=== PATIENT | male | born 1990 | race African-American/Black ===

== ENCOUNTER 2018-01-10 17:04 | Emergency (ER) | payer SELFPAY ==
[~2018-01-10] VITALS: Ht 172.7 cm; Wt 79.4 kg
[~2018-01-10 17:04] MED LIST: ACHD5005 PO
--- OUTSIDE RECORDS SUMMARY | 2018-01-10 17:10 | XMS REPORT ---
Author Author VENITA BEAN [facility] eClinicalWorks Address Unknown Phone Unavailable Care Team Providers Care Cafeteria Monitor Name Role Phone VENITA BEAN CP Unavailable Allergies, Adverse Reactions, Alerts Substance Reaction Event Type N.K.D.A. Info Not Available Non Drug Allergy Problems Problem Type Condition ICD-9 Code Onset Dates Condition Status Assessment Warts 078.10 Active Medications No Known Medications Procedures Procedure Coding System Code Date DESTRUCT LESION, 09-17 CPT-4 10930 May 04, 2015 Vital Signs Date/Time: May 04, 2015 Temperature 99.4 F Weight 167.3 lbs Height 72 in BMI 22.69 Index Blood Pressure Diastolic 90 mmHg Blood Pressure Systolic 122 mmHg Cardiac Monitoring Heart Rate 84 bpm Results No Known Results Summary Purpose eClinicalWorks Submission
--- NOTE | 2018-01-10 18:30 | ED General ---
General Chief Complaint: Dizziness/Syncope Stated Complaint: LIPS NUMB,LIGHT HEADED Nursing Triage Note: ARRIVED VIA AMB TO ROOM 10. STATES HE WOKE UP AT 6AM TODAY LIGHTHEADED AND HIS LIPS WERE NUMB. STATES IT HAS GOTTEN BETTER BUT IS NOT GONE. Nursing Sepsis Screen: No Definite Risk History of Present Illness Date Seen by Provider: January 10, 2018 Time Seen by Provider: 18:15 Initial Comments This 27-year-old man presents to the emergency room with complaints of feeling lightheaded and having numb lips since waking this morning. He denies any chest pain, palpitations, focal weakness, or shortness of breath. The perioral numbness has resolved but he still feels a little lightheaded. It may be worse when he stands up too fast. He denies any prior episodes. He smokes tobacco and marijuana. He occasionally drinks alcohol. He denies any marijuana or alcohol use within the past 2 days. Standing blood pressure on assessment was 128/99 with heart rate of 88. He denies any prior health history. He has no local physician. Allergies and Home Medications Allergies Coded Allergies: No Known Drug Allergies (Unverified , 05/26/12) Home Medications No Active Prescriptions or Reported Meds Patient Home Medication List Home Medication List Reviewed: Yes Review of Systems Constitutional: dizziness EENTM: no symptoms reported Respiratory: no symptoms reported Cardiovascular: see HPI Gastrointestinal: no symptoms reported Genitourinary: no symptoms reported Musculoskeletal: no symptoms reported Skin: see HPI Psychiatric/Neurological: See HPI Hematologic/Lymphatic: No Symptoms Reported Immunological/Allergic: no symptoms reported Past Caukthz-Ncskal-Nzfhpc Hx Past Med/Social Hx: Reviewed and Corrections made Patient Social History Alcohol Use: Occasionally Uses Recreational Drug Use: Yes Drug of Choice: Marijuana Smoking Status: Current Everyday Smoker Recent Foreign Travel: No Contact w/Someone Who Travel: No Recent Infectious Disease Expo: No Recent Hopitalizations: No Past Medical History Surgeries: No Respiratory: Yes (CHILDHOOD ASTHMA) Cardiac: No Neurological: No Genitourinary: No Gastrointestinal: No Musculoskeletal: No Endocrine: No HEENT: No Cancer: No Psychosocial: No Integumentary: No Physical Exam Vital Signs Vital Signs - First Documented 01/10/18 01/10/18 17:10 20:18 Temp 98.0 Pulse 81 Resp 18 B/P (MAP) 155/111 (126) Pulse Ox 98 O2 Delivery Room Air Capillary Refill : Less Than 3 Seconds General Appearance: No Apparent Distress, WD/WN HEENT: PERRL/EOMI, Normal ENT Inspection, Pharynx Normal Neck: Normal Inspection Respiratory: Lungs Clear, Normal Breath Sounds, No Accessory Muscle Use, No Respiratory Distress Cardiovascular: Regular Rate, Rhythm, No Edema, No Murmur Extremity: Normal Capillary Refill, Normal Inspection, No Pedal Edema Neurologic/Psychiatric: Alert, Oriented x3, No Motor/Sensory Deficits, Normal Mood/Affect, 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 Patient was found to have multiple hypertensive measurements while in the ER. He was advised to follow-up in the clinic setting to a blood pressure checked again. A liter of IV fluids was infused as patient seemed to be symptomatic upon standing. Departure Impression Primary Impression: Lightheadedness Additional Impressions: Perioral numbness Hypertension Qualified Codes: I10 - Essential (primary) hypertension Disposition: 01 HOME, SELF-CARE Condition: Improved Departure-Patient Inst. Referrals: [facility] (PCP/Family) Primary Care Physician Patient Instructions: High Blood Pressure (DC) Add. Discharge Instructions: [facility]. Have your blood pressure checked at your follow-up appointment. Return to emergency room if you 're having worsening symptoms. Avoid excessive salt or stimulants such as caffeine, decongestants medicines, energy drinks, etc. Avoid use of psychogenic substances such as marijuana. All discharge instructions reviewed with patient and/or family. Voiced understanding. Scripts No Active Prescriptions or Reported Meds SHEILA KENNEDY MD January 10, 2018 18:30
[2018-01-10] MEDS ORDERED: NS IV 1000 ML 1,000 ML IV ONE (18:31)
[2018-01-10 18:55] LABS: BASOPHILS # (AUTO) 0.1 10^3/uL (0.0-0.1); BASOPHILS % (AUTO) 1 % (0-10); EOSINOPHILS # (AUTO) 0.4 10^3/uL (0.0-0.3); EOSINOPHILS % (AUTO) 4 % (0-10); HEMATOCRIT 43 % (40-54); HEMOGLOBIN 15.6 G/DL (13.3-17.7); LYMPHOCYTES # (AUTO) 2.7 X 10^3 (1.0-4.0); LYMPHOCYTES % (AUTO) 30 % (12-44); MEAN CORPUSCULAR HEMOGLOBIN 30 PG (25-34); MEAN CORPUSCULAR HGB CONC 36 G/DL (32-36); MEAN CORPUSCULAR VOLUME 83 FL (80-99); MEAN PLATELET VOLUME 12.1 FL (7.4-10.4); MONOCYTES # (AUTO) 0.5 X 10^3 (0.0-1.0); MONOCYTES % (AUTO) 6 % (0-12); NEUTROPHILS # (AUTO) 5.3 X 10^3 (1.8-7.8); NEUTROPHILS % (AUTO) 59 % (42-75); PLATELET COUNT 213 10^3/uL (130-400); RED BLOOD COUNT 5.19 10^6/uL (4.35-5.85); RED CELL DISTRIBUTION WIDTH 12.5 % (10.0-14.5); WHITE BLOOD COUNT 8.9 10^3/uL (4.3-11.0)
[2018-01-10 19:13] LABS: ALANINE AMINOTRANSFERASE 11 U/L (0-55); ALBUMIN 4.7 GM/DL (3.2-4.5); ALKALINE PHOSPHATASE 70 U/L (40-136); BILIRUBIN,TOTAL 0.7 MG/DL (0.1-1.0); BUN/CREATININE RATIO 11; CALCIUM 10.1 MG/DL (8.5-10.1); CARBON DIOXIDE 26 MMOL/L (21-32); CHLORIDE 106 MMOL/L (98-107); CREATININE SERUM 0.98 MG/DL (0.60-1.30); GFR ESTIMATED > 60; GLUCOSE 83 MG/DL (70-105); MAGNESIUM 2.2 MG/DL (1.8-2.4); SODIUM 141 MMOL/L (135-145); TOTAL PROTEIN 6.8 GM/DL (6.4-8.2)
[2018-01-10 19:27] LABS: BILIRUBIN,URINE NEGATIVE (NEGATIVE); CLARITY,URINE CLEAR; COLOR,URINE YELLOW; GLUCOSE, URINE (UA) NEGATIVE (NEGATIVE); KETONES,URINE NEGATIVE (NEGATIVE); LEUKOCYTE ESTERASE ,URINE 1+ (NEGATIVE); NITRITE,URINE NEGATIVE (NEGATIVE); PH,URINE 6.5 (5-9); PROTEIN,URINE 1+ (NEGATIVE); UROBILINOGEN,URINE 1 MG/DL (NORMAL)
[2018-01-10 19:32] LABS: TSH (THYROID ANALYZER) 1.12 UIU/ML (0.35-4.94)
[2018-01-10 19:45] LABS: AMPHETAMINE SCREEN, URINE NEGATIVE (NEGATIVE); BARBITURATE SCREEN URINE NEGATIVE (NEGATIVE); BENZODIAZEPINES SCREEN URINE NEGATIVE (NEGATIVE); CANNABINOID SCREEN, URINE POSITIVE (NEGATIVE); COCAINE SCREEN URINE NEGATIVE (NEGATIVE); METHADONE STAT NEGATIVE (NEGATIVE); METHAMPHETAMINE SCREEN URINE S NEGATIVE (NEGATIVE); OPIATE SCREEN URINE NEGATIVE (NEGATIVE); OXYCODONE STAT NEGATIVE (NEGATIVE); PROPOXYPHENE STAT NEGATIVE (NEGATIVE); TRICYCLIC ANTIDEPRESSANTS SCRE NEGATIVE (NEGATIVE)
[2018-01-10 20:18] VITALS: BP 134/104
== END 2018-01-10 20:18 | disposition home or self-care (01) ==
LOC: EDUNIT# 17:04 → ER 17:06
DX: R42 Dizziness and giddiness (principal); R20.0 Anesthesia of skin; I10 Essential (primary) hypertension; J45.909 Unspecified asthma, uncomplicated; F17.200 Nicotine dependence, unspecified, uncomplicated
CPT/HCPCS: 36415; 80053; 80306; 81000; 83735; 84443; 85025; 96360; 99283